=== PATIENT | male | born 1985 | race Caucasian/White ===

== ENCOUNTER 2023-10-18 16:08 | Emergency (ER) | payer OTHER, SELFPAY ==
[2023-10-18 16:14] VITALS: BP 153/94; PULSE 58; TEMP 36.7; O2SAT 97; BMI 22.8
--- NOTE | 2023-10-18 16:18 | XR_ITS ---
The [address] [address] Patient Name: SHAD DAWSON MRN: [id number] date: 1985 Sex: M Assigned Patient Location: ER Current Patient Location: ER Accession/Order Number: [id number] Exam Date: 10/18/2023 16:40 Report Date: 10/18/2023 17:38 At the request of: JD SALES Procedure: XR foot RT min 3V EXAM: XR foot RT min 3V , 10/18/2023 HISTORY: injury COMPARISON: None. TECHNIQUE: X-rays of the right foot 3 views. FINDINGS: The bony structures and joint spaces in the right foot are unremarkable. No fracture or dislocation. No soft tissue swelling. XR/XR foot RT min 3V IMPRESSION: No fracture or dislocation right foot. Electronically authenticated by: JULIUS VILLANUEVA Date: 10/18/2023 17:38
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
--- NOTE | 2023-10-18 16:30 | ED.GENADUL1 ---
HPI HPI - General Adult General Chief complaint: Extremity Injury, Lower Stated complaint: LOWER EXTREMITY INJURY Time Seen by Provider: 10/18/23 16:13 Source: patient Mode of arrival: walk-in Limitations: no limitations History of Present Illness HPI narrative: 38-year-old male presents for chief complaint of right lateral foot pain and tenderness. He states accidentally rolled it. He states he originally injured it 2 to 3 months ago. Patient states yesterday he rolled it again causing pain to the right lateral region. Ambulating well. He denies any previous fracture or trauma to this extremity. He states he works in [employer] and he is up on his feet walking daily. He states he is walking with a slight limp at this time. He took Excedrin for pain this morning Related Data Home Medications ?Medication ?Instructions ?Recorded ?Confirmed No Known Home Medications 10/18/23 10/18/23 Allergies Allergy/AdvReac Type Severity Reaction Status Date / Time No Known Drug Allergies Allergy Verified 10/18/23 16:13 Opioid HPI Opioid Management Most Recent Opioid Data: Last Pain Scale 6 10/18/23 16:21 Review of Systems ROS Narrative All Systems are negative except as noted/marked.All systems reviewed and otherwise negative Exam Narrative Exam Narrative: Nurses note and vital signs reviewed and patient is not hypoxic. General: The patient appears well and in no apparent distress. Patient is resting comfortably on cart. Skin: Warm, dry, no pallor noted. There is no rash noted. Head: Normocephalic, atraumatic Eye: Normal conjunctiva, no drainage, EOMI. PERRL Ears, Nose, Mouth, and Throat: oral mucosa is moist. Nares patent. Mouth without vesicles. Ear canals patent. Tm's without Erythema Musculoskeletal: right lateral foot tenderness, no swelling noted, no pain to touch. neurovascularly intact. Remaining extremities are intact, no deformity Neurological: A&O x4, normal speech Psychiatric: Cooperative Constitutional Vital Signs, click to edit/add: Last Vital Signs Temp 98.0 F 10/18/23 16:14 Pulse 58 L 10/18/23 16:14 Resp 16 10/18/23 16:14 BP 153/94 H 10/18/23 16:14 Pulse Ox 97 10/18/23 16:14 Course Vital Signs Vital signs: Vital Signs Temperature 98.0 F 10/18/23 16:14 Pulse Rate 58 L 10/18/23 16:14 Respiratory Rate 16 10/18/23 16:14 Blood Pressure 153/94 H 10/18/23 16:14 Pulse Oximetry 97 10/18/23 16:14 Temperature 98.0 F 10/18/23 16:14 Pulse Rate 58 L 10/18/23 16:14 Respiratory Rate 16 10/18/23 16:14 Blood Pressure 153/94 H 10/18/23 16:14 Pulse Oximetry 97 10/18/23 16:14 Medical Decision Making MDM Narrative Medical decision making narrative: Present here chief complaint of right foot pain. He states he rolled his right foot and accidentally hurt the fourth and fifth metatarsal region. No acute fractures noted. Patient was given Fransisco wrap and postop shoeExtremity neurovascular intact before and after application. He will follow-up with El[facility] Differential Diagnosis Differential Diagnosis: foot fracture, sprain Medical Records Medical records reviewed: Yes I reviewed the patient's medical records Imaging Data foot: Radiologist's impression: ITS Impressions Ankle X-Ray 10/18/23 16:18 IMPRESSION: No acute fracture or dislocation. The joint spaces are intact throughout. Electronically authenticated by: DENISSE CLAY Date: 10/18/2023 17:35 Discharge Plan Discharge Stand Alone Forms: Portal Instructions Chief Complaint: Extremity Injury, Lower Clinical Impression: Foot sprain Patient Disposition: Home, Self-Care Time of Disposition Decision: 17:05 Condition: Good Prescriptions / Home Meds: No Action No Known Home Medications Print Language: Irish Instructions: Foot Sprain (ED), Ice Pack Application (ED) Referrals: Reji Adamson DO [Primary Care Provider] - 1 week Denisse Pérez DPM [Physician] - 1 week
== END 2023-10-18 17:43 | disposition home or self-care (01) ==
PROVIDERS: Emergency Provider Student in an Organized Health Care Education/Training Program; PCP Internal Medicine
DX: S93.601A Unspecified sprain of right foot, initial encounter (principal); X50.9XXA Other and unspecified overexertion or strenuous movements or postures, initial encounter
CPT/HCPCS: 73610; 73630; 99284